=== PATIENT | male | born 1995 | race Caucasian/White ===

== ENCOUNTER 2017-12-16 13:21 | Emergency (ER) | payer OTHER ==
--- OUTSIDE RECORDS SUMMARY | 2017-12-16 13:24 | XMS REPORT | Summary of Care ---
:1995 Author Organization [facility] Address [address] [place] [id number]- Encounter HQ Ana Lilia(FIN) [phone] Date(s): 07/16/17 - 07/17/[address] Professional Services provided by The [facility] [place] [address]- Encounter Diagnosis Postprocedural hemorrhage of a respiratory system organ or structure following other procedure (Final) - 07/25/17 Acute posthemorrhagic anemia (Final) - Hyperglycemia, unspecified (Final) - Discharge Disposition: Home or Self Care Attending Physician: Evan Benson MD Admitting Physician: Evan Benson MD Referring Physician: Jose Iyer MD Vital Signs Most recent to oldest 1 2 3 [Reference Range]: Height 182.88 cm 182.88 cm (07/16/17 9:22 AM) (07/16/17 4:00 AM) Temperature Oral [96.4-99.1 97.9 DegF 97.8 DegF 98.5 DegF DegF] (07/17/17 8:24 AM) (07/17/17 4:59 AM) (07/17/17 12:03 AM) Blood Pressure [90-140/60-90 118/58 mmHg 107/60 mmHg 124/55 mmHg mmHg] (07/17/17 8:24 AM) (07/17/17 4:59 AM) (07/17/17 12:03 AM) Respiratory Rate [14-20 BRMIN] 18 BRMIN 18 BRMIN 18 BRMIN (07/17/17 8:24 AM) (07/17/17 4:59 AM) (07/17/17 12:03 AM) Peripheral Pulse Rate [60-100 83 bpm 65 bpm 86 bpm bpm] (07/17/17 8:24 AM) (07/17/17 4:59 AM) (07/17/17 12:03 AM) Weight 72.727 kg 70 kg (07/16/17 9:22 AM) (07/16/17 4:00 AM) Body Mass Index 21.75 m2 20.93 m2 (07/16/17 9:22 AM) (07/16/17 4:00 AM) Problem List No data available for this section Allergies, Adverse Reactions, Alerts Substance Reaction Severity Status NKDA Active Medications acetaminophen 1,000 mg, 2 tab, Route: PO, Drug form: TAB, Q6H, Dosing Weight 70, kg, Start date: 07/16/17 12:00:00CDT, Duration: 30 day, Stop date: 08/15/17 6:00:00 CDT Notes: Max acetaminophen 4000 mg/day (4 gm/day). (Same as: Tylenol Extra Strength) Start Date: 07/16/17 Stop Date: 07/16/17 Status: Discontinuedacetaminophen (ANES) Route: IV, Drug form: INJ, ONCE, Stop date: 07/16/17 5:51:00 CDT Start Date: 07/16/17 Stop Date: 07/16/17 Status: Completedacetaminophen-hydrocodone 325 mg-7.5 mg/15 mL oral solution 15 mL, Route: PO, Drug Form: SOLN, Dosing Weight 70, kg, Q6H, PRN Pain Score 4-6 , Start date: 07/16/17 5:38:00 CDT, Duration: 30 day, Stop date: 08/15/17 5:37: 00 CDT Notes: (Same as: [place] 325/7.5) Start Date: 07/16/17 Stop Date: 07/16/17 Status: DiscontinuedANES flumazenil 0.2 mg, Route: IVP, PRN, Dosing Weight 70, kg, PRN Benzodiazepine Reversal, Initial dose, Start date: 07/16/17 5:25:00 CDT, Duration: 30 day, Stop date: 5:24:00 CDT Start Date: 07/16/17 Stop Date: 07/16/17 Status: DiscontinuedANES hydrALAZINE 10 mg, Route: IVP, Q20Min, Dosing Weight 70, kg, PRN Elevated BP, Start date: 5:25:00 CDT, Duration: 2 doses or times, Stop date: Limited # of times Start Date: 07/16/17 Stop Date: 07/16/17 Status: DiscontinuedANES morphine Sulfate 4 mg, Route: IVP, Q5Min, Dosing Weight 70, kg, PRN Pain Score 7-10, Start date: 07/16/17 5:25:00 CDT, Duration: 3 doses or times, Stop date: Limited # of times Start Date: 07/16/17 Stop Date: 07/16/17 Status: DiscontinuedANES morphine Sulfate 2 mg, Route: IVP, Q5Min, Dosing Weight 70, kg, PRN Pain Score 4-6, Start date: 07/16/17 5:25:00 CDT,Duration: 5 doses or times, Stop date: Limited # of times Start Date: 07/16/17 Stop Date: 07/16/17 Status: DiscontinuedANES naloxone 0.4 mg, Route: IVP, Q2MIN, Dosing Weight 70, kg, PRN Narcotic Reversal, Start date: 07/16/17 5:25:00CDT, Duration: 8 doses or times, Stop date: Limited # of times Start Date: 07/16/17 Stop Date: 07/16/17 Status: DiscontinuedANES ondansetron 4 mg, Route: IVP, ONCE, Dosing Weight 70, kg, PRN Nausea & Vomiting, Start date: 07/16/17 5:25:00 CDT Start Date: 07/16/17 Stop Date: 07/16/17 Status: Discontinuedcefadroxil 500 mg oral capsule 500 mg=1 cap, PO, Q12H, X 7 day, # 14 cap, 0 Refill(s) Start Date: 07/17/17 Stop Date: 07/17/17 Status: DiscontinuedceFAZolin (ANES) Route: IV, Drug form: INJ, ONCE, Stop date: 07/16/17 5:46:00 CDT Start Date: 07/16/17 Stop Date: 07/16/17 Status: Completeddexamethasone (ANES) Route: IV, Drug form: INJ, ONCE, Stop date: 07/16/17 5:46:00 CDT Start Date: 07/16/17 Stop Date: 07/16/17 Status: Completeddexmedetomidine (ANES) + Sodium Chloride 0.9% IV (ANES) 98 mL Route: IV, Drug form: INJ, ONCE, Stop date: 07/16/17 5:51:00 CDT Start Date: 07/16/17 Stop Date: 07/16/17 Status: Completeddiclofenac sodium 50 mg oral enteric coated, delayed-release tablet 50 mg=1 tab, PO, Q8H, PRN Pain Score 4-6, # 40 tab, 0 Refill(s) Start Date: 07/17/17 Stop Date: 07/17/17 Status: Discontinueddocusate 100 mg, 1 cap, Route: PO, Drug form: CAP, BID, Dosing Weight 70, kg, Start date : 07/16/17 9:00:00 CDT, Duration: 30 day, Stop date: 08/14/17 17:00:00 CDT Notes: (Same as: Colace) (Do Not Crush) Start Date: 07/16/17 Stop Date: 07/17/17 Status: Discontinueddocusate sodium 50 mg oral capsule 50 mg=1 cap, PO, BID, PRN Constipation, # 30 cap, 0 Refill(s) Start Date: 07/17/17 Stop Date: 07/17/17 Status: Discontinuedfamotidine (ANES) Route: IV, Drug form: INJ, ONCE, Stop date: 07/16/17 5:46:00 CDT Start Date: 07/16/17 Stop Date: 07/16/17 Status: CompletedfentaNYL (ANES) Route: IV, Drug form: INJ, ONCE, Stop date: 07/16/17 5:46:00 CDT Start Date: 07/16/17 Stop Date: 07/16/17 Status: Completedglycopyrrolate (ANES) Route: IV, Drug form: INJ, ONCE, Stop date: 07/16/17 6:11:00 CDT Start Date: 07/16/17 Stop Date: 07/16/17 Status: CompletedIsolyte S PH 7.4 1000 mL 1,000 mL, Rate: 100 ml/hr, Infuse over: 10 hr, Route: IV, Dosing Weight 70 kg, Total Volume: 1,000, Start date: 07/16/17 7:52:00 CDT, Duration: 30 day, Stop date: 08/15/17 7:51:00 CDT, 1.89, m2 Start Date: 07/16/17 Stop Date: 07/16/17 Status: DiscontinuedIsolyte S PH-7.4 (Bolus) IV 1,000 mL, 1000 ml/hr, Route: IV, Drug Form: SOLN, Dosing Weight 70, kg, ONCE, Start date: 07/16/17 7:54:00 CDT, Stop date: 07/16/17 7:54:00 CDT Notes: (Same as: Isolyte S PH 7.4) Start Date: 07/16/17 Stop Date: 07/16/17 Status: CompletedLactated Ringers Injection IV (ANES) 1000 mL Route: IV, Total Volume: 1,000, Start date: 07/16/17 4:48:00 CDT, Stop date: 5:48:00 CDT Start Date: 07/16/17 Stop Date: 07/16/17 Status: Completedlidocaine (ANES) Route: IV, Drug form: INJ, ONCE, Stop date: 07/16/17 5:46:00 CDT Start Date: 07/16/17 Stop Date: 07/16/17 Status: Completedmetoclopramide (ANES) Route: IV, Drug form: INJ, ONCE, Stop date: 07/16/17 5:46:00 CDT Start Date: 07/16/17 Stop Date: 07/16/17 Status: Completedmorphine Sulfate 2 mg, 0.5 mL, Route: IVP, Drug form: SOLN, Q2H, Dosing Weight 72.727, kg, PRN Pain Score 7-10, Startdate: 07/16/17 20:14:00 CDT, Duration: 30 day, Stop date: 08/15/17 20:13:00 CDT Notes: (Same as:MORPhine Sulfate) Start Date: 07/16/17 Stop Date: 07/17/17 Status: Discontinuedneostigmine (ANES) Route: IV, Drug form: INJ, ONCE, Stop date: 07/16/17 6:11:00 CDT Start Date: 07/16/17 Stop Date: 07/16/17 Status: Completedondansetron 4 mg, 2 mL, Route: IVP, Drug form: INJ, Q6H, Dosing Weight 70, kg, PRN Nausea & amp; Vomiting, Start date: 07/16/17 5:37:00 CDT, Duration: 30 day, Stop date: 5:36:00 CDT Notes: (Same as: Zofran) MEDICATION WASTE Product Size: 4 mgProduct Wasted: ___ mg Start Date: 07/16/17 Stop Date: 07/16/17 Status: Discontinuedondansetron (ANES) Route: IV, Drug form: INJ, ONCE, Stop date: 07/16/17 5:46:00 CDT Start Date: 07/16/17 Stop Date: 07/16/17 Status: CompletedoxyCODONE 5 mg oral tablet 5 mg, 1 tab, Route: PO, Drug form: TAB, Q6H, Dosing Weight 70, kg, PRN Pain Score 4-6, Start date: 07/16/17 8:29:00 CDT, Duration: 30 day, Stop date: 8:28:00 CDT Notes: (Same as: Roxicodone) Start Date: 07/16/17 Stop Date: 07/16/17 Status: DiscontinuedoxyCODONE 5 mg/5 mL oral solution 5 mg, 5 mL, Route: PO, Drug form: LIQ, Q6H, Dosing Weight 72.727, kg, PRN Pain 4 -6/Temp > 100.4 F, Start date: 07/16/17 11:39:00 CDT, Duration: 30 day, Stop date: 08/15/17 11:38:00 CDT Notes: (Same as: 'Roxicodone) Start Date: 07/16/17 Stop Date: 07/17/17 Status: DiscontinuedPhenergan 12.5 mg, Route: IVPB, ONCE, Dosing Weight 70, kg, Priority: STAT, Start date: 6:07:00 CDT, Stop date: 07/16/17 6:07:00 CDT Start Date: 07/16/17 Stop Date: 07/16/17 Status: Completedpromethazine 12.5 mg, 0.5 mL, Route: IM, Drug form: INJ, Q4H, Dosing Weight 70, kg, PRN Nausea & Vomiting, Start date: 07/16/17 5:37:00 CDT, Duration: 30 day, Stop date: 08/15/17 5:36:00 CDT Notes: (Same as: Phenergan) Start Date: 07/16/17 Stop Date: 07/16/17 Status: Discontinuedpropofol (ANES) Route: IV, Drug form: INJ, ONCE, Stop date: 07/16/17 5:46:00 CDT Start Date: 07/16/17 Stop Date: 07/16/17 Status: Completedrocuronium (ANES) Route: IV, Drug form: INJ, ONCE, Stop date: 07/16/17 5:46:00 CDT Start Date: 07/16/17 Stop Date: 07/16/17 Status: Completedsuccinylcholine (ANES) Route: IV, Drug form: INJ, ONCE, Stop date: 07/16/17 5:46:00 CDT Start Date: 07/16/17 Stop Date: 07/16/17 Status: Completedtramadol 100 mg, 2 tab, Route: PO, Drug form: TAB, Q6H, Dosing Weight 70, kg, Start date : 07/16/17 12:00:00 CDT, Duration: 30 day, Stop date: 08/15/17 6:00:00 CDT Notes: Not to exceed 400mg/day. (Same As: Ultram) Start Date: 07/16/17 Stop Date: 07/16/17 Status: Discontinuedtramadol 50 mg, 1 tab, Route: PO, Drug form: TAB, Q6H, Dosing Weight 72.727, kg, Start date: 07/16/17 12:00:00 CDT, Duration: 30 day, Stop date: 08/15/17 6:00:00 CDT Notes: Not to exceed 400mg/day. (Same As: Ultram) Start Date: 07/16/17 Stop Date: 07/17/17 Status: DiscontinuedTylenol 1,000 mg, 31.23 mL, Route: PO, Drug form: LIQ, Q6H, Dosing Weight 72.727, kg, Start date: 07/16/17 12:00:00 CDT, Duration: 30 day, Stop date: 08/15/17 6:00: 00 CDT Notes: Max tyxztqhdlllie=7683xn/day (4 gm/day). (Same as: Tylenol) Start Date: 07/16/17 Stop Date: 07/17/17 Status: DiscontinuedZofran 4 mg oral tablet 4 mg=1 tab, PO, Q8H, PRN Nausea/vomiting, # 30 tab, 0 Refill(s) Start Date: 07/17/17 Stop Date: 07/17/17 Status: Discontinued Results BLOOD BANK RESULTS Most recent to oldest [Reference Range]: 1 2 3 ABO/Rh A POS *Unknown* (07/16/17 4:00 AM) Antibody Scrn Negative (07/16/17 4:00 AM) ELECTROLYTES Most recent to oldest 1 2 3 [Reference Range]: Sodium Lvl [135-145 mEq/L] 143 mEq/L 140 mEq/L 139 mEq/L (07/17/17 4:47 AM) (07/16/17 9:09 AM) (07/16/17 4:13 AM) Potassium Lvl [3.5-5.1 4.2 mEq/L 4.4 mEq/L 3.7 mEq/L mEq/L] (07/17/17 4:47 AM) (07/16/17 9:09 AM) (07/16/17 4:13 AM) Chloride Lvl [95-109 mEq/L] 108 mEq/L 108 mEq/L 108 mEq/L (07/17/17 4:47 AM) (07/16/17 9:09 AM) (07/16/17 4:13 AM) CO2 [24-32 mEq/L] 31 mEq/L 24 mEq/L 24 mEq/L (07/17/17 4:47 AM) (07/16/17 9:09 AM) (07/16/17 4:13 AM) AGAP [10.0-20.0 mEq/L] 8.2 mEq/L 12.4 mEq/L 10.7 mEq/L *LOW* (07/16/17 9:09 AM) (07/16/17 4:13 AM) (07/17/17 4:47 AM) CHEM PANEL Most recent to oldest 1 2 3 [Reference Range]: Creatinine Lvl [0.50-1.40 0.76 mg/dL 0.69 mg/dL 0.72 mg/dL mg/dL] (07/17/17 4:47 AM) (07/16/17 9:09 AM) (07/16/17 4:13 AM) eGFR 131 mL/min/1.73m2 1 136 mL/min/1.73m2 2 133 mL/min/1.73m2 3 *NA* *NA* *NA* (07/17/17 4:47 AM) (07/16/17 9:09 AM) (07/16/17 4:13 AM) BUN [7-22 mg/dL] 10 mg/dL 12 mg/dL 13 mg/dL (07/17/17 4:47 AM) (07/16/17 9:09 AM) (07/16/17 4:13 AM) Glucose Lvl [70-99 mg/dL] 86 mg/dL 140 mg/dL 135 mg/dL (07/17/17 4:47 AM) *HI* *HI* (07/16/17 9:09 AM) (07/16/17 4:13 AM) Calcium Lvl [8.5-10.5 8.0 mg/dL 7.8 mg/dL 7.6 mg/dL mg/dL] *LOW* *LOW* *LOW* (07/17/17 4:47 AM) (07/16/17 9:09 AM) (07/16/17 4:13 AM) Phosphorus [2.5-4.5 mg/dL] 2.9 mg/dL (07/16/17 9:09 AM) Magnesium Lvl [1.8-2.4 1.7 mg/dL mg/dL] *LOW* (07/16/17 9:09 AM) 1Result Comment: The eGFR is calculated using the CKD-EPI formula. In most young , healthy individualsthe eGFR will be >90 mL/min/1.73m2. The eGFR declines with age. An eGFR of 60-89 may be normal insome populations, particularly the elderly, for whom the CKD-EPI formula has not been extensively validated. Use of the eGFR is not recommended in the following populations: Individuals with unstable creatinine concentrations, including patients and those with serious co-morbid conditions. Patients with extremes in muscle mass or diet. The data above are obtained from the National Kidney Disease Education Program ( NKDEP) which additionally recommends that when the eGFR is used in patients with extremes of body mass index for purposesof drug dosing, the eGFR should be multiplied by the estimated BMI.2Result Comment: The eGFR is calculated using the CKD-EPI formula. In most young, healthy individualsthe eGFR will be >90 mL/min/1.73m2. The eGFR declines with age. An eGFR of 60-89 may be normal insome populations, particularly the elderly, for whom the CKD-EPI formula has not been extensively validated. Use of the eGFR is not recommended in the following populations: Individuals with unstable creatinine concentrations, including patients and those with serious co-morbid conditions. Patients with extremes in muscle mass or diet. The data above are obtained from the National Kidney Disease Education Program ( NKDEP) which additionally recommends that when the eGFR is used in patients with extremes of body mass index for purposesof drug dosing, the eGFR should be multiplied by the estimated BMI.3Result Comment: The eGFR is calculated using the CKD-EPI formula. In most young, healthy individualsthe eGFR will be >90 mL/min/1.73m2. The eGFR declines with age. An eGFR of 60-89 may be normal insome populations, particularly the elderly, for whom the CKD-EPI formula has not been extensively validated. Use of the eGFR is not recommended in the following populations: Individuals with unstable creatinine concentrations, including patients and those with serious co-morbid conditions. Patients with extremes in muscle mass or diet. The data above are obtained from the National Kidney Disease Education Program ( NKDEP) which additionally recommends that when the eGFR is used in patients with extremes of body mass index for purposesof drug dosing, the eGFR should be multiplied by the estimated BMI.PARATHYROID PROFILE Most recent to oldest [Reference Range]: 1 2 3 Ca Ion WB [1.05-1.25 mMol/L] 1.03 mMol/L *LOW* (07/16/17 9:09 AM) Ca Norm WB [1.05-1.25 mMol/L] 1.05 mMol/L (07/16/17 9:09 AM) IMMUNOLOGY Most recent to oldest [Reference Range]: 1 2 3 CDC HIV 4th GEN [Negative] Negative *NA* (07/16/17 5:04 AM) HEMATOLOGY Most recent to oldest 1 2 3 [Reference Range]: WBC [3.7-10.4 K/CMM] 7.8 K/CMM 6.2 K/CMM 6.5 K/CMM (07/17/17 4:47 AM) (07/16/17 4:50 PM) (07/16/17 9:09 AM) RBC [4.70-6.10 M/CMM] 3.16 M/CMM 3.22 M/CMM 3.52 M/CMM *LOW* *LOW* *LOW* (07/17/17 4:47 AM) (07/16/17 4:50 PM) (07/16/17 9:09 AM) Hgb [14.0-18.0 g/dL] 9.3 g/dL 9.5 g/dL 10.4 g/dL *LOW* *LOW* *LOW* (07/17/17 4:47 AM) (07/16/17 4:50 PM) (07/16/17 9:09 AM) Hct [42.0-54.0 %] 27.6 % 27.9 % 30.3 % *LOW* *LOW* *LOW* (07/17/17 4:47 AM) (07/16/17 4:50 PM) (07/16/17 9:09 AM) MCV [80.0-94.0 fL] 87.2 fL 86.8 fL 86.3 fL (07/17/17 4:47 AM) (07/16/17 4:50 PM) (07/16/17 9:09 AM) MCH [27.0-31.0 pg] 29.5 pg 29.4 pg 29.6 pg (07/17/17 4:47 AM) (07/16/17 4:50 PM) (07/16/17 9:09 AM) MCHC [32.0-36.0 g/dL] 33.9 g/dL 33.9 g/dL 34.3 g/dL (07/17/17 4:47 AM) (07/16/17 4:50 PM) (07/16/17 9:09 AM) RDW [11.5-14.5 %] 12.8 % 12.7 % 12.8 % (07/17/17 4:47 AM) (07/16/17 4:50 PM) (07/16/17 9:09 AM) MPV [7.4-10.4 fL] 9.2 fL 9.2 fL 9.1 fL (07/17/17 4:47 AM) (07/16/17 4:50 PM) (07/16/17 9:09 AM) Platelet [133-450 K/CMM] 210 K/CMM 204 K/CMM 198 K/CMM (07/17/17 4:47 AM) (07/16/17 4:50 PM) (07/16/17 9:09 AM) Segs [45.0-75.0 %] 45.5 % 60.5 % 89.8 % (07/17/17 4:47 AM) (07/16/17 4:50 PM) *HI* (07/16/17 9:09 AM) Lymphocytes [20.0-40.0 %] 42.5 % 28.8 % 8.5 % *HI* (07/16/17 4:50 PM) *LOW* (07/17/17 4:47 AM) (07/16/17 9:09 AM) Monocytes [2.0-12.0 %] 10.4 % 10.3 % 1.6 % (07/17/17 4:47 AM) (07/16/17 4:50 PM) *LOW* (07/16/17 9:09 AM) Eosinophils [0.0-4.0 %] 1.0 % 0.2 % 1.2 % (07/17/17 4:47 AM) (07/16/17 4:50 PM) (07/16/17 4:13 AM) Basophils [0.0-1.0 %] 0.6 % 0.2 % 0.1 % (07/17/17 4:47 AM) (07/16/17 4:50 PM) (07/16/17 9:09 AM) Segs-Bands # [1.5-8.1 K/CMM] 3.6 K/CMM 3.7 K/CMM 5.9 K/CMM (07/17/17 4:47 AM) (07/16/17 4:50 PM) (07/16/17 9:09 AM) Lymphocytes # [1.0-5.5 3.3 K/CMM 1.8 K/CMM 0.6 K/CMM K/CMM] (07/17/17 4:47 AM) (07/16/17 4:50 PM) *LOW* (07/16/17 9:09 AM) Monocytes # [0.0-0.8 K/CMM] 0.8 K/CMM 0.6 K/CMM 0.1 K/CMM (07/17/17 4:47 AM) (07/16/17 4:50 PM) (07/16/17 9:09 AM) Eosinophils # [0.0-0.5 0.1 K/CMM 0.1 K/CMM K/CMM] (07/17/17 4:47 AM) (07/16/17 4:13 AM) PT [12.0-14.7 seconds] 16.3 seconds *HI* (07/16/17 4:13 AM) INR [0.85-1.17] 1.30 *HI* (07/16/17 4:13 AM) Immunizations No data available for this section Procedures Procedure Date Related Diagnosis Body Site Status Tonsillectomy 07/10/17 Completed Social History Social History Type Response Smoking Status Never smoker; Concerns about tobacco use in household: No; Exposure to Tobacco Smoke None; Cigarette Smoking Last 365 Days No; Reg Smoking Cessation Counseling No entered on: 07/16/17 Assessment and Plan Extracted from: Title: ENT Author: Denice Samuel MD Date: 07/18/17 Admitting Physician: Dr. Benson Date of Admission: 07/16/17 Date of Discharge: 07/17/17 Admission Diagnosis: post tonsillectomy hemorrhage, acute blood loss anemia Discharge Diagnosis: post tonsillectomy hemorrhage, acute blood loss anemia Operative Procedures: Control of post tonsillectomy bleeding 07/16/17 History: Edi is a 22 yM with no significant PMH who presented with significant post tonsillectomy hemorrhage. He reportedly had a tonsillectomy approx 1 week ago. He was taken emergently to the OR for control of post tonsillectomy bleeding. He was admitted for observation and management of acute blood loss anemia. He did well and was discharged tolerating soft diet and pain well controlled. Discharge Instructions Activity: light activity for 2 weeks Diet: soft diet Medications : see med rec Follow-Up: with his ENT for splint removal in 2-7 days, please call for an appointment Denice Gongberlinsabrina Otolaryngology PGY-2 MSO# [id number] Please page with any questions: [phone] Extracted from: Title: ENT Progress Note Author: Lalo Love MD Date: 07/17/17 ENT Daily Progress Note S: TROY overnight O: Vitals Tmp(F) Tmp(C) Ttype BP MAP Pulse RR SpO2 FIO2 ETCO2 07/17 08:24 97.9 36.61 oral 118/58 --- 83 18 96 --- --- 07/17 04:59 97.8 36.56 oral 107/60 --- 65 18 98 --- --- 07/17 00:03 98.5 36.94 oral 124/55 --- 86 18 98 --- --- 07/16 19:24 98.0 36.67 oral 128/69 --- 81 20 98 --- --- 07/16 17:45 99.3 37.39 oral 131/67 --- 81 20 98 --- --- 24 Hr Tmax: 99.3F (37.39c) at 07/16 17:45 Vital Signs are the last 5 in the past 48 hours. Surgical Procedures: 07/16/17 05:07 CONTROL OF OROPHARYNGEAL HEMORRHAGE [id number] Primary Surgeon: Evan Benson MD (Service: ENT) Head/Face: NCAT, facial strength symmetric ENT: external ears/nose wnl, tonsillar fossa healing with no blood or clots Neck: trachea midline, no LAD Chest: normal resp effort, no retractions Neuro: Alert, NFD A/P: AP: 22yM s/p control of hemorrhage in OR for secondary post-tonsillectomy bleed. - Soft diet for 2 weeks. No chips, cookies, crackers, yemeni fries, pizza or anything crunchy. - Hycet Rx for pain control -Patient will follow up with his private ENT as scheduled. -Discharge to home Lalo Lechuga MD Otolaryngology PGY-3 MSO# [id number] Please page with any questions or concerns: [phone] Extracted from: Title: STICU Acceptance Note Author: Solomon Jain MD Date: 07/16/17 [facility] STICU Acceptance Note Date of Admission: 07/16/17 Admitting Trauma Surgeon: Kate Ramirez MD Time of Initial Patient Assessment: 814 Chief Complaint: 'lots of bleeding from my tonsils and pain' History of Present Illness: Mr Alcazar is a 22yo male with no significant PMHx presenting to STICU as SIMU overflow 2/2 acute post surgical bleed. Per patient's mother, pt recieved tonsilectomy, adenoidectomy, and deviated septoplasty 07/10. Since then, patient has had on/off mild bleeding that was visible on spitting. Last night however, acute increase in bleeding with associated hemoptysis and hematemasis. Patient was t aken to outside ER. Hgb was found to drop from 14.4 to 6.7. Pt recieved 1 unit PRBC and 2-3L IVF. He was [facility] to [facility] for HLOC. Patient was takent to OR with ENT for control of oropharyngeal hemo rrhage. Found to have left tonsillar bleed - ENT packed and cauterized. [facility]. Per family, has never had history of excessive bleeding. No family history of bleeding disorders. Past Medical History: 1. none Past Surgical History: 1. none Home Medications: 1. none Allergies: 1. NKDA Social History: Alcohol social Tobacco no Drug use no Family History: 1. no familial history of bleeding disorders Review of Systems: Constitutional Symptoms: no fever, no weight loss, no weight gain, no fatigue , no malaise Eyes: no diplopia, no blurred vision, no redness, no discharge, no loss of vision Ears, Nose, Mouth, Throat: odynophagia, blood tingued sputum s/p tonsillar bleed Cardiovascular: no chest pain, no SOB, no HUDSON, no orthopnea, no PND, no poor exercise tolerance, tachycardic Respiratory: hemoptysis prior to presentation Gastrointestinal: no abdominal pain, 2 episodes of hematemesis prior to presentation; no N/V Genitourinary: no dysuria, no frequency, no urgency, no nocturia, no incontinence Musculoskeletal: no arthralgia, no myalgia, no stiffness Integumentary (skin and/or breast): no rash, no hives, no breast pain, no mass , no nipple dc Neurological: no weakness, no headache, no seizure, no dizziness, no tingling, no numbness Psychiatric: no anxiety, no depression, no insomnia Endocrine: no polyuria, no polydipsia, no fatigue, no weight loss, no weight gain, no cold or heat intolerance, no palpitations Hematologic/Lymphatic: acute bleed s/p T&A; no currently bleeding Allergic/Immunologic: no rash, no allergies, no fever, no chills Overnight Events: 07/16: Acute post T&A bleed; lifeflight from outside ER; pod 0 for control of oropharyngeal hemmorhage with ENT In Hospital Operations: 07/16: Control of oropharyngeal hemmorhage with ENT Daily Events: 07/16: Acute post T&A bleed; lifeflight from outside ER; pod 0 for control of oropharyngeal hemmorhage with ENT Physical Examination/Findings: Vitals Tmp(F) Tmp(C) Ttype BP MAP Pulse RR SpO2 FIO2 ETCO2 07/16 07:00 99.1 37.28 axil 139/66 93 95 17 94 --- --- 07/16 06:45 99.1 37.28 scan 139/66 93 101 16 98 --- --- 07/16 06:30 ---- ---- ---- 147/72 99 102 18 100 --- --- 07/16 06:15 99 37.22 scan 152/70 101 103 16 99 6.0L/m --- 07/16 04:40 ---- ---- ---- 127/65 89 87 16 98 --- --- 24 Hr Tmax: 99.1F (37.28c) at 07/16 07:00 24 Hr Tmin: 97.2F (36.22c) at 04:00 36 Hr Tmax: 99.1F (37.28c) at 07/16 07:00 36 Hr Tmin: 97.2F (36.22c) at 04:00 Constitutional/Neuro/Psych: General Appearance: awake alert x3; pale; lethargic GCS: Eye 4 Verbal 5 Motor: 6 Total: 15 RASS: 0 Cranial nerve exam: WNL Reflexes: WNL Sensation: WNL Judgement: intact Orientation: AOx3 Memory/mood: intact CAM: negative Sedation holiday: not intubated Restraints: no Medications: Tylenol 1g q6 Tramadol 100 q6 Oxycodone 5 q6 PRN Plan: - Continue pain managment - Switch tylenol and oxy to liquid forms HEENT: Conjunctiva and Eye lids: intact Pupils: PERRLA Ears and Nose: WNL Lips and Teeth: blood stained lips; dentition intact Neck: supple non-tender; odynophagia; post-tonsilectomy sites visibile - no active extravisation seen Medications: 1. none Plan: - S/p contol of acute L tonsillar hemmorhage - per ENT no continued hemmorahge , STICU observation - Can give 2nd dose dexamethasone later today for swelling and pain managment Cardiovascular: Cardiac auscultation: regular rhythm; tachycardic to 120s Extremity Edema: none Pulse exam: LUE 2+ RUE 2+ LLE 2+ RLE 2+ Medications: 1. none Plan: - Tachycardia - likely secondary to acute blood loss and pain - repeat CBC now - will give 1L bolus - pain managment Pulmonary: Inspection/effort: no distress; equal expansion Chest auscultation: CTAB Sputum: none Satting 99 on room air Medications: 1. none Plan: -Continue to monitor GI/Nutrition: Abdominal exam: soft, non-tender, no pain to palpation Type of Diet: dysphagia - soft, thin liquids 24 Hour NG tube output 200cc bloody fluid per ENT in OR Stress ulcer prophylaxis: none Date Wt(kg) Wt(lb) Ht(cm) Ht(in) Method BMI BSA 07/16 (initial) 70.00 154.00 Estimated 20.9 1.89 Medications: 1. none Plan: - OK to have soft diet per ENT Genitourinary: Penis: no shaver in place 07/16 0413 Glucose Lvl 135 H BUN 13 Creatinine Lvl 0.72 Sodium Lvl 139 Potassium Lvl 3.7 Chloride Lvl 108 CO2 24 AGAP 10.7 Calcium Lvl 7.6 L IVF: none Shaver necessary for: no shaver Plan: - Will give 1L bolus now - Follow up post op labs Infectious Disease/Hematology: 24 Hr Tmax: 99.1F (37.28c) at 07/16 07:00 24 Hr Tmin: 97.2F (36.22c) at 04:00 36 Hr Tmax: 99.1F (37.28c) at 07/16 07:00 36 Hr Tmin: 97.2F (36.22c) at 04:00 WBC 6.2 RBC 3.72 L Hgb 11.0 L Hct 32.4 L MCV 87.1 MCH 29.6 MCHC 34.0 RDW 12.6 Platelet 193 MPV 8.8 Segs 70.3 Monocytes 9.0 Lymphocytes 19.4 L Eosinophils 1.2 Basophils 0.1 Segs-Bands # 4.3 Lymphocytes # 1.2 Monocytes # 0.6 Eosinophils # 0.1 PT 16.3 H INR 1.30 H Central venous access: none Arterial line access: none VTE risk status: low DVT prophylaxis: holding due to bleed per ENT; will encourage ambulation and SCDs Sepsis screen: negative Cultures: none Antibiotics: 1. none Endocrine: Glucose range: 135 24 Hour Insulin requirements: none Insulin drip: no Musculoskeletal/Skin: Activity: as tolerated Weightbearing status: RUE: WB LUE: WB RLE: WB LLE: WB Skin/wound examination: negative Extremity examination: negative Disposition: PT/OT Plan: no consult SW Plan: no consult CM Plan: no consult PM&R Consult: no Discharge disposition: home with family Required Clinical Documentation: Sedation holiday: not intubated Restraints: no Indication: N/A Shaver necessary for: no shaver VTE risk status: low; holding anticoaguation per ENT - ambulation and SCDs Central venous access necessary for: none Arterial line access necessary for : none Assessment and Plan: Mr Alcazar is a 22yo male with no significant PMHx presenting to STICU as SIMU overflow 2/2 acute post surgical bleed s/p control of oropharyngeal hemmorhage with ENT. Injuries and plan as follows: Injuries: Consults/Plans: 1. L tonsillary hemorrhage 1. S/P control of oropharyngeal hemmorhage with ENT; monitor vitals and H/H Solomon Jain MD PGY 1 Anesthesiology Critical Care Attestation I saw and examined the patient with Dr Jain and agree with the assessment and plan as written above with the following changes: Acute postop pain - on Multimodal (Tyl, Tram, Oxy PRN x1 - make liquid for ease of swallowing as can. Intra-oral swelling - dexamethasone per ENT, okay to start PO Anemia of acute blood loss - 10.4, acute drop (6.7 from 14) - bleeding control in OR by ENT Clear to start diet. Hyperglycemia - monitor with serial blood glucose, SSI SIMU overflow Kate Ramirez MD [id number] DOS: 07/16/17 Extracted from: Title: ENTConsultation Author: Denice Samuel MD Date: 07/16/17 Impression and Plan Mr. Alcazar is a 22 yM with no significant PMH who presented with post tonsillectomy hemorrhage. - will go to the OR urgently for control of post tonsillectomy bleeding with ENT - discussed with staff. consent obtained. Denice Samuel Otolaryngology PGY-2 MSO# [id number] Please page with any questions: [phone]
--- OUTSIDE RECORDS SUMMARY | 2017-12-16 13:24 | XMS REPORT ---
:1995 Author Organization [employer] Care Team Providers Name Role Phone Jessica Grace Provider Role Unavailable Allergies, Adverse Reactions, Alerts Substance Reaction Event Type N.K.D.A. Info Not Available Non Drug Allergy Problems Problem Type Condition Code Onset Dates Condition Status Problem Positive PELON (antinuclear antibody) R76.8 Active Assessment Positive PELON (antinuclear antibody) R76.8 Active Problem Chronic fatigue R53.82 Active Assessment Chronic fatigue R53.82 Active Medications No Known Medications Vital Signs Date/Time: Apr 11, 2017 BMI 21.63 Index Weight 164 lbs Height 73 in Temperature 97.0 F Cardiac Monitoring Heart Rate 74 /min Blood Pressure Diastolic 72 mm Hg Blood Pressure Systolic 122 mm Hg Results No Known Results Summary Purpose [employer] Submission
--- OUTSIDE RECORDS SUMMARY | 2017-12-16 13:24 | XMS REPORT | Continuity of Care Document ---
:1995 Author Organization Interface Problems Problem Status Onset Classification Date Comments Source Date Reported Postprocedural 07/27/19 10/23/2017 [facility] hemorrhage of a Medical respiratory system Center organ or structure following other procedure POST TONSILLECTOMY Active 07/17/19 [facility] BLEED Medical Center LFLT TRANSFER Active 07/17/19 [facility] #[id number] Medical Center BLEEDING, Active 07/17/19 [facility] POST-TONSILLECTOMY Medical HEMORRHAGE Center Positive PELON Active Problem 04/14/2017 [facility] Britt Chronic fatigue Active Problem 04/14/2017 Ricci Brtit Acute 10/23/2017 [facility] posthemorrhagic Medical anemia Center Hyperglycemia, 10/23/2017 [facility] unspecified Medical Center HEMORRHAGE, NOT Active [facility] ELSEWHERE Medical CLASSIFIED Center OTH POSTPROC Active [facility] COMPLICATIONS AND Medical DISORDERS Center Medications Medication Details Route Status Patient Ordering Order Source Instructions Provider Date cefadroxil 500 mg 500 mg=1 cap, Inactive 07/17[facility] oral capsule PO, Q12H, X 7 2017 day, # 14 cap, 0 Center Refill(s) Docusate Sodium 50 mg=1 cap, PO, Inactive 07/17[facility] 50 MG Oral BID, PRN 2018 Medical Capsule Constipation, # Center 30 cap, 0 Refill(s) Ondansetron 4 MG 4 mg=1 tab, PO, Inactive 07/17[facility] Oral Tablet Q8H, PRN 2018 Medical [Zofran] Nausea/vomiting, Center # 30 tab, 0 Refill(s) diclofenac sodium 50 mg=1 tab, PO, Inactive 07/17[facility] 50 mg oral Q8H, PRN Pain 2018 Medical enteric coated, Score 4-6, # 40 Center delayed-release tab, 0 Refill(s) tablet Morphine 2 mg, 0.5 mL, No Longer [facility] Route: IVP, Drug Active 2017 Medical form: SOLN, Q2H, Center Dosing Weight 72.727, kg, PRN Pain Score 7-10, Start date: 07/16/17 20:14:00 CDT, Duration: 30 day, Stop date: 08/15/17 20:13:00 CDTNotes: (Same as:MORPhine Sulfate) Tramadol 100 mg, 2 tab, Inactive [facility] Route: PO, Drug 2017 Medical form: TAB, Q6H, Center Dosing Weight 70, kg, Start date: 07/16/17 12:00:00 CDT, Duration: 30 day, Stop date: 08/15/17 6:00:00 CDTNotes: Not to exceed 400mg/day. (Same As: Ultram) Tylenol 1,000 mg, 31.23 No Longer Esteban mL, Route: PO, Active 2017 Medical Drug form: LIQ, Center Q6H, Dosing Weight 72.727, kg, Start date: 07/16/17 12:00:00 CDT, Duration: 30 day, Stop date: 08/15/17 6:00:00 CDTNotes: Max acetaminophen=40 00mg/day (4 gm/day). (Same as: Tylenol) Acetaminophen 1,000 mg, 2 tab, Inactive [facility] Route: PO, Drug 2017 Medical form: TAB, Q6H, Center Dosing Weight 70, kg, Start date: 07/16/17 12:00:00 CDT, Duration: 30 day, Stop date: 08/15/17 6:00:00 CDTNotes: Max acetaminophen 4000 mg/day (4 gm/day). (Same as: Tylenol Extra Strength) Oxycodone 5 mg, 5 mL, No Longer Esteban Hydrochloride 1 Route: PO, Drug Active 2018 Medical MG/ML Oral form: LIQ, Q6H, Center Solution Dosing Weight 72.727, kg, PRN Pain 4-6/Temp > 100.4 F, Start date: 07/16/17 11:39:00 CDT, Duration: 30 day, Stop date: 08/15/17 11:38:00 CDTNotes: (Same as: 'Roxicodone) Docusate 100 mg, 1 cap, No Longer [facility] Route: PO, Drug Active 2018 Medical form: CAP, BID, Center Dosing Weight 70, kg, Start date: 07/16/17 9:00:00 CDT, Duration: 30 day, Stop date: 08/14/17 17:00:00 CDTNotes: (Same as: Colace) (Do Not Crush) Oxycodone 5 mg, 1 tab, Inactive [facility] Hydrochloride 5 Route: PO, Drug 2018 Medical MG Oral Tablet form: TAB, Q6H, Center Dosing Weight 70, kg, PRN Pain Score 4-6, Start date: 07/16/17 8:29:00 CDT, Duration: 30 day, Stop date: 08/15/17 8:28:00 CDTNotes: (Same as: Roxicodone) Isolyte S PH-7.4 1,000 mL, 1000 Inactive Esteban (Bolus) IV ml/hr, Route: 2018 Medical [facility] Weight 70, kg, ONCE, Start date: 07/16/17 7:54:00 CDT, Stop date: 07/16/17 7:54:00 CDTNotes: (Same as: Isolyte S PH 7.4) Isolyte S PH 7.4 1,000 mL, Rate: Inactive Esteban 1000 mL 100 ml/hr, 2018 Medical Infuse over: 10 Center hr, Route: IV, Dosing Weight 70 kg, Total Volume: 1,000, Start date: 07/16/17 7:52:00 CDT, Duration: 30 day, Stop date: 08/15/17 7:51:00 CDT, 1.89, m2 glycopyrrolate Route: IV, Drug Inactive Estebna (ANES) form: INJ, ONCE, 2018 Medical Stop date: [place] 07/16/17 6:11:00 CDT neostigmine Route: IV, Drug Inactive 07/16[facility] Esteban (ANES) form: INJ, ONCE, 2018 Medical Stop date: [place] 07/16/17 6:11:00 CDT Phenergan 12.5 mg, Route: Inactive Esteban IVPB, ONCE, 2018 Medical Dosing Weight Center 70, kg, Priority: STAT, Start date: 07/16/17 6:07:00 CDT, Stop date: 07/16/17 6:07:00 CDT dexmedetomidine Route: IV, Drug Inactive [facility] (ANES) + Sodium form: INJ, ONCE, 2017 Medical Chloride 0.9% IV Stop date: [place] ([facility]) 98 mL 07/16/17 5:51:00 CDT acetaminophen Route: IV, Drug Inactive [place] (ANES) form: INJ, ONCE, 2017 Medical Stop date: [place] 07/16/17 5:51:00 CDT propofol (ANES) Route: IV, Drug Inactive Esteban form: INJ, ONCE, 2017 Medical Stop date: [place] 07/16/17 5:46:00 CDT lidocaine (ANES) Route: IV, Drug Inactive Esteban form: INJ, ONCE, 2017 Medical Stop date: [place] 07/16/17 5:46:00 CDT metoclopramide Route: IV, Drug Inactive Esteban (ANES) form: INJ, ONCE, 2017 Medical Stop date: [place] 07/16/17 5:46:00 CDT famotidine (ANES) Route: IV, Drug Inactive [facility]eban form: INJ, ONCE, 2017 Medical Stop date: [place] 07/16/17 5:46:00 CDT ceFAZolin (ANES) Route: IV, Drug Inactive [facility]an form: INJ, ONCE, 2017 Medical Stop date: [place] 07/16/17 5:46:00 CDT dexamethasone Route: IV, Drug Inactive Esteban (ANES) form: INJ, ONCE2017 Medical Stop date: [place] 07/16/17 5:46:00 CDT ondansetron Route: IV, Drug Inactive [facility] (ANES) form: INJ, ONCE, 2017 Medical Stop date: [place] 07/16/17 5:46:00 CDT fentaNYL (ANES) Route: IV, Drug Inactive [facility] form: INJ, ONCE, 2017 Medical Stop date: [place] 07/16/17 5:46:00 CDT succinylcholine Route: IV, Drug Inactive [place] (ANES) form: INJ, ONCE, 2017 Medical Stop date: [place] 07/16/17 5:46:00 CDT rocuronium (ANES) Route: IV, Drug Inactive Esteban form: INJ, ONCE, 2017 Medical Stop date: [place] 07/16/17 5:46:00 CDT Acetaminophen 15 mL, Route: Inactive Esteban 21.7 MG/ML / PO, Drug Form: 2018 Medical Hydrocodone SOLN, Dosing Center Bitartrate 0.5 Weight 70, kg, MG/ML Oral Q6H, PRN Pain Solution Score 4-6, Start date: 07/16/17 5:38:00 CDT, Duration: 30 day, Stop date: 08/15/17 5:37:00 CDTNotes: (Same as: [place] 325/7.5) Ondansetron 4 mg, 2 mL, Inactive 07/16[facility] Route: IVP, Drug 2018 Medical form: INJ, Q6H, Center Dosing Weight 70, kg, PRN Nausea & Vomiting, Start date: 07/16/17 5:37:00 CDT, Duration: 30 day, Stop date: 08/15/17 5:36:00 CDTNotes: (Same as: Zofran) MEDICATION WASTE Product Size: 4 mg Product Wasted: ___ mg Promethazine 12.5 mg, 0.5 mL, Inactive 07/16[facility] Route: IM, Drug 2018 Medical form: INJ, Q4H, Center Dosing Weight 70, kg, PRN Nausea & Vomiting, Start date: 07/16/17 5:37:00 CDT, Duration: 30 day, Stop date: 08/15/17 5:36:00 CDTNotes: (Same as: Phenergan) Ondansetron 4 mg, Route: Inactive 07/16[facility] IVP, ONCE, 2018 Medical Dosing Weight Center 70, kg, PRN Nausea & Vomiting, Start date: 07/16/17 5:25:00 CDT Hydralazine 10 mg, Route: Inactive 07/16[facility] IVP, Q20Min, 2018 Medical Dosing Weight Center 70, kg, PRN Elevated BP, Start date: 07/16/17 5:25:00 CDT, Duration: 2 doses or times, Stop date: Limited # of times Morphine 4 mg, Route: Inactive 07/16[facility] IVP, Q5Min, 2018 Medical Dosing Weight Center 70, kg, PRN Pain Score 7-10, Start date: 07/16/17 5:25:00 CDT, Duration: 3 doses or times, Stop date: Limited # of times Flumazenil 0.2 mg, Route: Inactive 07/16[facility] IVP, PRN, Dosing 2018 Medical Weight 70, kg, Center PRN Benzodiazepine Reversal, Initial dose, Start date: 07/16/17 5:25:00 CDT, Duration: 30 day, Stop date: 08/15/17 5:24:00 CDT Naloxone 0.4 mg, Route: Inactive 07/16[facility] IVP, Q2MIN, 2018 Medical Dosing Weight Center 70, kg, PRN Narcotic Reversal, Start date: 07/16/17 5:25:00 CDT, Duration: 8 doses or times, Stop date: Limited # of times Lactated Ringers Route: IV, Total Inactive 07/16[facility] Injection IV Volume: 1,000, 2018 [facility] (ANES) 1000 mL Start date: Center 07/16/17 4:48:00 CDT, Stop date: 07/16/17 5:48:00 CDT Allergies, Adverse Reactions, Alerts Substance Category Reaction Severity Reaction Status Date Comments Source type Reported N.K.D.A. Adverse Info Not Adverse Active Ricci Reaction Available Reaction 7 Britt NKDA Assertion Drug Active [facility] Immunizations Immunization Date Given Site Status Last Updated Comments Source Results Order Name Results Value Reference Date Interpretation Comments Source Range CHEM PANEL eGFR 131 07/17 Result Comment: The eGFR is calculated using the CKD-EPI formula. In most young, healthy individuals the eGFR will be >90 mL/ min/1.73m2. The eGFR declines with age. An eGFR of 60-89 may be normal in [facility] mL/min/1 some populations, particularly the elderly, for whom the CKD-EPI formula has not been extensively validated. Use of the eGFR is not recommended in the following populations: [facility] 73 Center Individuals with unstable creatinine concentrations, including patients and those with serious co-morbid conditions. Patients with extremes in muscle mass or diet. The data above are obtained from the National Kidney Disease Education Program (NKDEP) which additionally recommends that when the eGFR is used in patients with extremes of body mass index for purposes of drug dosing, the eGFR should be multiplied by the estimated BMI. CHEM PANEL Potassium 4.2 meq/L 3.5 - 5.1 07/17 [facility] Lvl /2017 [facility] CHEM PANEL AGAP 8.2 meq/L 10.0 - 07/17 20.0 [facility] CHEM PANEL Chloride Lvl 108 meq/L 95 - 109 07/17 [facility] CHEM PANEL Calcium Lvl 8.0 mg/dL 8.5 - 10.5 07/17 [facility]2017 [facility] CHEM PANEL CO2 31 meq/L 24 - 32 07/17 [facility] CHEM PANEL BUN 10 mg/dL 7 - 22 07/17 [facility] CHEM PANEL Creatinine 0.76 0.50 - 07/17 [facility] Lvl mg/dL 1.40 [facility] CHEM PANEL Glucose Lvl 86 mg/dL 70 - 99 07/17 [facility] CHEM PANEL Sodium Lvl 143 meq/L 135 - 145 07/17 [facility] HEMATOLOGY Hct 27.6 % 42.0 - 07/17 54.0 [facility] HEMATOLOGY Hgb 9.3 g/dL 14.0 - 07/17 18.0 [facility] HEMATOLOGY MPV 9.2 fL 7.4 - 10.4 07/17 [facility] HEMATOLOGY RDW 12.8 % 11.5 - 07/17 [facility] 14.5 [facility] HEMATOLOGY Platelet 210 K/CMM 133 - 450 07/17 [facility] HEMATOLOGY RBC 3.16 4.70 - 07/17 [facility] M/CMM 6.10 [facility] HEMATOLOGY WBC 7.8 K/CMM 3.7 - 10.4 07/17 [facility] HEMATOLOGY MCHC 33.9 g/dL 32.0 - 07/17 36.0 [facility] HEMATOLOGY MCH 29.5 pg 27.0 - 07/17 31.0 [facility] HEMATOLOGY MCV 87.2 fL 80.0 - 07/17 94.0 [facility] HEMATOLOGY Monocytes 10.4 % 2.0 - 12.0 07/17 [facility] HEMATOLOGY Lymphocytes 42.5 % 20.0 - 07/17 40.0 [facility] HEMATOLOGY Segs 45.5 % 45.0 - 07/17 75.0 [facility] HEMATOLOGY Basophils 0.6 % 0.0 - 1.0 07/17 [facility] HEMATOLOGY Eosinophils 1.0 % 0.0 - 4.0 07/17 [facility] HEMATOLOGY Segs-Bands # 3.6 K/CMM 1.5 - 8.1 07/17 2017 [facility] HEMATOLOGY Monocytes # 0.8 K/CMM 0.0 - 0.8 07/[address] HEMATOLOGY Eosinophils 0.1 K/CMM 0.0 - 0.5 07/17 [facility] HEMATOLOGY Lymphocytes 3.3 K/CMM 1.0 - 5.5 07/17 [facility] HEMATOLOGY Basophils 0.2 % 0.0 - 1.0 07/16 [facility]2017 [facility] HEMATOLOGY Monocytes 10.3 % 2.0 - 12.0 07/[address] HEMATOLOGY Eosinophils 0.2 % 0.0 - 4.0 07/[address] HEMATOLOGY Segs-Bands # 3.7 K/CMM 1.5 - 8.1 07/16 [facility] HEMATOLOGY Lymphocytes 1.8 K/CMM 1.0 - 5.5 07/16 [facility] HEMATOLOGY Monocytes # 0.6 K/CMM 0.0 - 0.8 07/16 [facility] HEMATOLOGY Lymphocytes 28.8 % 20.0 - 07/16 40.0 [facility] HEMATOLOGY Segs 60.5 % 45.0 - 07/16 75.0 [facility] HEMATOLOGY Platelet 204 K/CMM 133 - 450 07/16 [facility] HEMATOLOGY MPV 9.2 fL 7.4 - 10.4 07/16 [facility] HEMATOLOGY MCHC 33.9 g/dL 32.0 - 07/16 [place] 36.0 [facility] HEMATOLOGY RDW 12.7 % 11.5 - 07/16 14.5 [facility] HEMATOLOGY MCV 86.8 fL 80.0 - 07/16 94.0 [facility] HEMATOLOGY MCH 29.4 pg 27.0 - 07/16 31.0 [facility] HEMATOLOGY Hct 27.9 % 42.0 - 07/16 [facility] 54.0 [facility] HEMATOLOGY RBC 3.22 4.70 - 07/16 [facility] M/CMM 6.10 [facility] HEMATOLOGY Hgb 9.5 g/dL 14.0 - 07/16 [facility] 18.0 [facility] HEMATOLOGY WBC 6.2 K/CMM 3.7 - 10.4 07/[address] CHEM PANEL Phosphorus 2.9 mg/dL 2.5 - 4.5 07/[address] CHEM PANEL Magnesium 1.7 mg/dL 1.8 - 2.4 07/16 [facility] CHEM PANEL eGFR 136 07/16 Result Comment: The eGFR is calculated using the CKD-EPI formula. In most young, healthy individuals the eGFR will be >90 mL/ min/1.73m2. The eGFR declines with age. An eGFR of 60-89 may be normal in [facility] mL/min/1 some populations, particularly the elderly, for whom the CKD-EPI formula has not been extensively validated. Use of the eGFR is not recommended in the following populations: [address] Individuals with unstable creatinine concentrations, including patients and those with serious co-morbid conditions. Patients with extremes in muscle mass or diet. The data above are obtained from the National Kidney Disease Education Program (NKDEP) which additionally recommends that when the eGFR is used in patients with extremes of body mass index for purposes of drug dosing, the eGFR should be multiplied by the estimated BMI. CHEM PANEL Sodium Lvl 140 meq/L 135 - 145 07/[address] CHEM PANEL Creatinine 0.69 0.50 - 07/16 [facility] Lvl mg/dL 1.40 [facility] CHEM PANEL Potassium 4.4 meq/L 3.5 - 5.1 07/16 [facility] CHEM PANEL Chloride Lvl 108 meq/L 95 - 109 07/[address] CHEM PANEL CO2 24 meq/L 24 - 32 07/[address] CHEM PANEL Calcium Lvl 7.8 mg/dL 8.5 - 10.5 07/[address] CHEM PANEL AGAP 12.4 10.0 - 07/16 [facility] meq/L 20.0 [facility] CHEM PANEL Glucose Lvl 140 mg/dL 70 - 99 07/[address] CHEM PANEL BUN 12 mg/dL 7 - 22 07/[address] HEMATOLOGY Segs-Bands # 5.9 K/CMM 1.5 - 8.1 07/16 [facility] HEMATOLOGY Lymphocytes 0.6 K/CMM 1.0 - 5.5 07/16 [facility] # [facility] HEMATOLOGY Basophils 0.1 % 0.0 - 1.0 07/16 [facility] HEMATOLOGY Monocytes # 0.1 K/CMM 0.0 - 0.8 07/16 [facility] HEMATOLOGY Segs 89.8 % 45.0 - 07/16 [place] 75.0 [facility] HEMATOLOGY Lymphocytes 8.5 % 20.0 - 07/16 [facility] 40.0 [facility] HEMATOLOGY Monocytes 1.6 % 2.0 - 12.0 07/16 [facility] HEMATOLOGY RBC 3.52 4.70 - 07/16 [facility] M/CMM 6.10 [facility] HEMATOLOGY MCV 86.3 fL 80.0 - 07/16 [facility] 94.0 [facility] HEMATOLOGY MCH 29.6 pg 27.0 - 07/16 [facility] 31.0 [facility] HEMATOLOGY WBC 6.5 K/CMM 3.7 - 10.4 07/16 [facility] HEMATOLOGY MPV 9.1 fL 7.4 - 10.4 07/16 [facility] HEMATOLOGY Platelet 198 K/CMM 133 - 450 07/16 [facility] HEMATOLOGY MCHC 34.3 g/dL 32.0 - 07/16 36.0 [facility] HEMATOLOGY RDW 12.8 % 11.5 - 07/16 14.5 [facility] HEMATOLOGY Hgb 10.4 g/dL 14.0 - 07/16 [place] 18.0 [facility] HEMATOLOGY Hct 30.3 % 42.0 - 07/16 [place] 54.0 [facility] PARATHYROID Ca Ion WB 1.03 1.05 - 07/16 [facility] PROFILE mMol/L 05.18 [facility] PARATHYROID Ca Norm WB 1.05 1.05 - 07/16 [facility] PROFILE mMol/L . [facility] IMMUNOLOGY CDC HIV 4th Negative Negative 07/16 [facility] GEN Medical *NA* Center (07/16/17 5:04 AM) CHEM PANEL eGFR 133 07/16 Result Comment: The eGFR is calculated using the CKD-EPI formula. In most young, healthy individuals the eGFR will be >90 mL/ min/1.73m2. The eGFR declines with age. An eGFR of 60-89 may be normal in [facility] mL/min/1 some populations, particularly the elderly, for whom the CKD-EPI formula has not been extensively validated. Use of the eGFR is not recommended in the following populations: [place] [address] Center Individuals with unstable creatinine concentrations, including patients and those with serious co-morbid conditions. Patients with extremes in muscle mass or diet. The data above are obtained from the National Kidney Disease Education Program (NKDEP) which additionally recommends that when the eGFR is used in patients with extremes of body mass index for purposes of drug dosing, the eGFR should be multiplied by the estimated BMI. CHEM PANEL Chloride Lvl 108 meq/L 95 - 109 07/16 [facility] CHEM PANEL Potassium 3.7 meq/L 3.5 - 5.1 07/16 [facility] Lvl [facility] CHEM PANEL Glucose Lvl 135 mg/dL 70 - 99 07/16 [facility]2017 [facility] CHEM PANEL BUN 13 mg/dL 7 - 22 07/[address] CHEM PANEL Calcium Lvl 7.6 mg/dL 8.5 - 10.5 07/16 [facility]2017 [facility] CHEM PANEL CO2 24 meq/L 24 - 32 07/[address] CHEM PANEL Creatinine 0.72 0.50 - 07/16 [facility] Lvl mg/dL 1.40 [facility] CHEM PANEL Sodium Lvl 139 meq/L 135 - 145 07/[address] CHEM PANEL AGAP 10.7 10.0 - 07/16 [facility] meq/L 20.0 [facility] HEMATOLOGY INR 1.30 0.85 - 07/16 [place] 1.17 [facility] HEMATOLOGY PT 16.3 s 12.0 - 07/16 [place] 14.7 [facility] HEMATOLOGY Eosinophils 0.1 K/CMM 0.0 - 0.5 07/16 [facility] # [facility] HEMATOLOGY Eosinophils 1.2 % 0.0 - 4.0 07/[address] BLOOD BANK ABO/Rh A POS 07/16 [facility] RESULTS [facility] BLOOD BANK Antibody Negative 07/16 [facility] RESULTS [facility] (07/16/17 4:00 AM) [place] Vital Signs Vital Sign Value Date Comments Source Systolic (mm Hg) 118 07/17/2017 [facility] Diastolic (mm Hg) 58 07/17/2017 [facility] Respitory Rate 18 07/17/2017 [facility] Heart Rate 83 07/17/2017 [facility] Temperature Oral (F) 97.9 F 07/17/2017 [facility] Respitory Rate 18 07/17/2017 [facility] Systolic (mm Hg) 107 07/17/2017 [facility] Diastolic (mm Hg) 60 07/17/2017 [facility] Heart Rate 65 07/17/2017 [facility] Temperature Oral (F) 97.8 F 07/17/2017 [facility] Heart Rate 86 07/17/2017 [facility] Temperature Oral (F) 98.5 F 07/17/2017 [facility] Respitory Rate 18 07/17/2017 [facility] Systolic (mm Hg) 124 07/17/2017 [facility] Diastolic (mm Hg) 55 07/17/2017 [facility] Height 182.88 cm 07/16/2017 [facility] BMI Calculated 21.75 07/16/2017 [facility] Weight 72.727 07/16/2017 [facility] Weight 70 07/16/2017 [facility] BMI Calculated 20.93 07/16/2017 [facility] Height 182.88 cm 07/16/2017 [facility] Weight 164 04/11/2017 Ricci Britt Height 73 04/11/2017 Ricci Britt Temperature Oral (F) 97.0 F 04/11/2017 Ricci Britt Heart Rate 74 04/11/2017 Ricci Britt Diastolic (mm Hg) 72 04/11/2017 Ricci Britt Systolic (mm Hg) 122 04/11/2017 Ricci Britt Encounters Location Location Encounter Encounter Reason Attending ADM DC Status Source Details Type Number For Provider Date Date [facility] [id number] [facility] 07[facility]16 07/17 [facility] /2017 [facility] Procedures Procedure Code Date Perfomer Comments Source Tonsillectomy [id number] 07/10/2017 [facility]
--- NOTE | 2017-12-16 14:24 | RAD REPORT ---
EXAM DESCRIPTION: RAD - Foot Right 3 View - 12/16/2017 2:15 pm CLINICAL HISTORY: Right foot pain status post injury FINDINGS: A 3 millimeter bony density lies along the dorsal aspect of navicular. Since there is not significant soft tissue swelling it probably either represents an ossicle or is chronic. An acute avu lsion fracture is considered less likely and should be correlated clinically. No dislocation is seen
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
== END 2017-12-16 16:05 | disposition home or self-care (01) ==
LOC: ER 13:21
DX: S93.601A Unspecified sprain of right foot, initial encounter (principal); V91.19XA Crushed between unspecified watercraft and other watercraft or other object due to collision, initial encounter; Y93.19 Activity, other involving water and watercraft; Y92.814 Boat as the place of occurrence of the external cause; Y99.1 Military activity
CPT/HCPCS: 99283